=== PATIENT | female | born 2000 | race Caucasian/White ===

== ENCOUNTER 2023-05-02 12:01 | Emergency (ER) | payer BC, SELFPAY ==
[2023-05-02 12:23] VITALS: BP 125/78; PULSE 103; RESP 16; TEMP 36.9; O2SAT 99; BMI 24.8
--- NOTE | 2023-05-02 13:38 | ED_ITS ---
HPI - General Adult General Date Seen: 05/02/23 Chief complaint: Syncope/Fainted Stated complaint: passed out twice within 3 hours Time Seen by Provider: 05/02/23 13:37 History of Present Illness HPI narrative: 22-year-old generally healthy female who takes no regular medications and has no allergies who is referred from the Urgent Care to the ER today with concern for 3 syncopal episodes. History is obtained in part from the patient and in part from her friend, Zaria. 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 She has been studying [place] and sleeping not very much. Maximum amount of sleep since has been 7 hours in a night. She was up all night last night pulling on all night her. She does not normally drink caffeine but did drink 3 caffeinated beverages overnight to stay awake. She was feeling a bit nauseous and had a mild headache this morning. She went to her math computation at the [employer]. She was in the bathroom about 10:00 a.m.. She does not recall if she urinated or defecated. She recalls that she had gotten up from the toilet and was walking across the bathroom. She recalls feeling a little bit funny and dreamy and then woke up on the floor. No one saw her fall. It sounds like she was only on the floor briefly, perhaps less than a minute. She had no witnessed seizure activity but no one saw her fall. No postictal confusion. She was still a bit nauseous. Her friend gave her part a protein bar thinking her blood sugar might be low. Because of the fainting spell her friend drove her home home and then to the urgent care. At the urgent care she was apparently sitting in a chair there and had another spell where she briefly blacked out while sitting up and her head flopped over onto her friends shoulder. She had no seizure-like activity during the witnessed spell. She was unconscious about 10 or 15 seconds and then came to. Her friend does not recall any postictal confusion. Because of the fainting spell the providers at the urgent care checked her blood sugar and it was normal. They referred her to the ER. In the ER lobby she had a 3rd spell that occurred while she was sitting up in a chair. She again cleansed out and was unresponsive. She was clenching her fists tightly but not otherwise shaking. Spell lasted perhaps 10 seconds and then resolved. She does not recall any antecedent chest pain, palpitations, or severe headaches prior to any of her spells. No other recent illness. No fever or chills. No cough. No shortness of breath. No other chest pains lately. No abdominal pain. Menstrual cycles but normal. During her 1st spell in the bathroom she did hit her forehead against the floor. She really does not have a headache. She also chipped her right upper central incisor and her right lower central incisor. No bleeding in her mouth. No tongue lacerations. Related Data Home Medications Medication Instructions Recorded Confirmed No Known Home Medications 05/02/23 05/02/23 Allergies Allergy/AdvReac Type Severity Reaction Status Date / Time No Known Drug Allergies Allergy Verified 05/02/23 12:22 [facility] Social History Smoking Status: Never smoker Do you use any of these nicotine containing products: None How often do you have a drink containing alcohol: monthly or less How often do you have six or more drinks on one occasion: Never AUDIT-C Alcohol total score: 1 Non-prescribed substance use: denies use Exam Narrative: Exam Narrative: Constitutional: Appears well-developed and well-nourished. Alert. Conversant. Non toxic. HENT: Head: Very small frontal forehead hematoma. Without underlying skull fracture. Exam head trauma Nose: Nose normal. Mouth/Throat: Oral mucosa is clear and moist. no trismus. Pharynx normal. Tonsils symmetric. No tonsillar enlargement, erythema, or exudate. She has Fernández class 1 injury to the enamel of her right maxillary and mandibular central incisors. No jaw pain. No other signs of facial injury per Eyes: Conjunctivae normal. EOM normal. Pupils equal, round, and reactive to ligh t. No scleral icterus. Neck: Normal range of motion. Neck supple. No tracheal deviation present. No posterior midline tenderness. Cardiovascular: Normal rate, regular rhythm. No gallop. No friction rub. No murmur heard. Symmetric radial artery pulses Pulmonary/Chest: Effort normal. No stridor. No respiratory distress. No wheezes. No rales. No rhonchi . No tenderness. Abdominal: Soft. Bowel sounds normal. No distension. No mass. No tenderness. No rebound. No guarding. Musculoskeletal: RUE: Normal range of motion. No tenderness. No deformity LUE: Normal range of motion. No tenderness. No deformity RLE: Normal range of motion. No edema. No tenderness. No deformity LLE: Normal range of motion. No edema. No tenderness. No deformity Lymph: No cervical adenopathy. Neurological: Mental status normal. Attention normal. Alert and oriented x3. GCS 15. Memory normal. Speech fluent. Cognition normal. Cranial Nerves intact II-XII except I did not formally test gag or visual acuity. EOMI. Palate elevates symmetrically and tongue protrudes in the midline. Strength: 5/5 trapezius on the right and left 5/5 deltoid on the right and left 5/5 biceps on the right and left 5/5 triceps on the right and left 5/5 paper tube cutter on the right and left 5/5 thumb opposition on the right and le ft 5/5 finger abduction on the right and le ft 5/5 hip flexors (L3) on the right and le ft 5/5 quadriceps (L4) on the right and lef t 5/5 tibialis anterior on the right and l eft 5/5 EHL (L5) on the right and left 5/5 gastrocnemius (S1) on the right and left 5/5 hamstring on the right and left Sensation intact to light touch in both upper extremities (C4-T1) Sensation intact to light touch in Both lower extremities (L4-S1). Finger to nose and coordination normal. Skin: Skin is warm and dry. No rash noted. No pallor. Normal capillary refill. Psychiatric: Normal mood. Normal affect. Very polite. Const: Vital Signs, click to edit/add: Vital Signs - 24 hr 05/02/23 12:23 05/02/23 15:31 Temperature 98.4 F Pulse Rate [Pulse Oximeter] 103 H 87 Respiratory Rate 16 18 Blood Pressure [Ri ght Upper Arm] 125/78 120/65 Pulse Oximetry 99 94 Oxygen Delivery Me thod Room Air Room Air Course Course ED Course: Recheck-feeling better after IV fluids. Ambulatory in the hallway without dizziness or presyncope. Produced urine. Vital Signs Vital signs: Initial Vital Signs Temperature 98.4 F 05/02/23 12:23 Temperature Source Temporal Artery Scan 05/02/23 12:23 Pulse Rate 103 H 05/02/23 12:23 Pulse Rhythm Regular 05/02/23 12:23 Pulse Strength 3+ Normal 05/02/23 12:23 Respiratory Rate 16 05/02/23 12:23 Blood Pressure 125/78 05/02/23 12:23 Blood Pressure Mean 93 05/02/23 12:23 Blood Pressure Position Sitting 05/02/23 12:23 Pulse Oximetry 99 05/02/23 12:23 Oxygen Delivery Method Room Air 05/02/23 12:23 Vital Signs Temperature 98.4 F 05/02/23 12:23 Pulse Rate 103 H 05/02/23 12:23 Respiratory Rate 16 05/02/23 12:23 Blood Pressure 125/78 05/02/23 12:23 Pulse Oximetry 99 05/02/23 12:23 Oxygen Delivery Method Room Air 05/02/23 12:23 Temperature 98.4 F 05/02/23 12:23 Pulse Rate 87 05/02/23 15:31 Respiratory Rate 18 05/02/23 15:31 Blood Pressure 120/65 05/02/23 15:31 Pulse Oximetry 94 05/02/23 15:31 Oxygen Delivery Method Room Air 05/02/23 15:31 Medications Administered Medications: Discontinued Medications Generic Name Dose Route Start Last Admin Trade Name Freq PRN Reason Stop Dose Admin Sodium Chloride 1,000 mls @ 1,000 mls/hr 05/02/23 13:45 05/02/23 15:10 0.9 % Sodium Chloride 1000 Ml IV 05/02/23 14:44 Infused .Q1H ALECIA Infusion Medical Decision Making [facility] Narrative Medical decision making narrative: This patient presents for evaluation of a syncopal event. A broad differential was considered. History provided suggests a benign cause of syncope. No murmurs . Initial ECG shows normal sinus rhythm and no dysrhythmogenic abnormality such as WPW, prolonged QT, Brugada syndrome, and no ischemia. No symptoms/findings concerning for cardiac ischemia or ACS. No headache or other neurologic sy mptoms to suggest subarachnoid , stroke . No reported seizure-like activity or postictal phase. ekg monitor while the patient here in the ER showed no dysrhythmia or ectopy. A broad differential diagnosis was considered including SVT, Atrial fibrillation, ventricular arrhythmia, thyroid disease, acute electrolyte abnormality, drugs/medications, medication side effect, anemia, heart disease, PE (negative by PERC), among others. Patient feeling much better after IV fluids The workup and exam here in ED shows low risk for dangerous cause of the patient's syncope, and no risks factors to warrant admission. Clinical judgement suggests that supportive outpatient management is indicated. Recommend follow up with her primary care or [facility]. She did hit her head when she fell during her for syncopal episode. She is neurologically intact here in the ER. Overall meets low risk criteria according to he [place] head CT rules so would hold off on CT scan for now. Unclear if she is even having symptoms of concussion. She does have bowel nausea but that was actually preceding her syncopal episode and might be related to staying up all night Recommend follow-up in clinic for re-evaluation. Questions answered and return precautions given Lab Data Labs: Lab Results 05/02/23 05/02/23 Range/Units 14:14 14:25 Sodium 136 (135-149) mmol/L Potassium 4.0 (3.6-5.1) mmol/L Chloride 102 (96-114) mmol/L Carbon Dioxide 21 (20-32) mmol/L Anion Gap 13 (7-15) mEq/L BUN 10 (5-24) mg/dL Creatinine 0.6 (0.5-1.5) mg/dL Estimated Creat Clear 122.69 Estimated GFR 131 ml/min Glucose 113 (60-115) mg/dL Calcium 10.0 (8.4-10.6) mg/dL Total Bilirubin 1.0 (0.1-1.5) mg/dL AST 24 (12-35) U/L ALT 19 (4-35) U/L Alkaline Phosphatase 55 (40-150) U/L Total Protein 8.8 H (6.0-8.3) g/dL Albumin 5.4 H (3.3-5.0) g/dL Urine HCG, Qual Negative (Negative) Urine Opiates Screen Negative (Negative) Ur Oxycodone Screen Negative (Negative) Urine Methadone Screen Negative (Negative) Ur Barbiturates Screen Negative (Negative) U Tricyclic Antidepress Negative (Negative) Ur Phencyclidine Scrn Negative (Negative) Ur Amphetamines Screen Negative (Negative) U Methamphetamines Scrn Negative (Negative) U Benzodiazepines Scrn Negative (Negative) Urine Cocaine Screen Negative (Negative) U Marijuana (THC) Screen Negative (Negative) Ur Drug Screen Comment See Note ECG Data Attestation: I personally reviewed and interpreted this ECG as follows: Interpretation: Normal sinus rhythm. Rate 74 FL . One hundred forty-four. No delta waves. No signs of WPW. QRS axis . Normal axis. No pathologic Q-waves. ST segment/T wave: No ST segment elevation or depression. QTc: 448 No evidence for Brugada syndrome, ischemia, WPW. Discharge Plan Discharge Clinical Impression: Syncope and collapse, Head injury Patient Disposition: Home, Self-Care Condition: Stable Instructions: Syncope (DC), Head Injury (DC) Additional Instructions: Please follow-up with your doctor within the next 2-3 days to recheck. If you have any concerns, especially more fainting spells, worsening headache, confusion, vomiting, or other concerns, please come back to the ER right away. Prescriptions: No Action No Known Home Medications Follow Up/Referrals: Provider,Not a Local [Primary Care Provider] - Stand Alone Forms: [id number] Info Instructions
[2023-05-02] MEDS: 0.9 % SODIUM CHLORIDE 1000 ml 1,000 ML IV (14:30)
[2023-05-02 14:38] LABS: Ur HCG Qualitative* Negative (Negative)
[2023-05-02 14:46] LABS: Amphetamine Screen Urine Negative (Negative); Barbiturate Screen Urine Negative (Negative); Benzodiazepines Screen Urine Negative (Negative); Cannabinoid Screen Urine Negative (Negative); Cocaine Screen Urine Negative (Negative); Methadone Screen Urine Negative (Negative); Methamphetamines Screen Urine Negative (Negative); Opiate Screen Urine Negative (Negative); Oxycodone Screen Urine Negative (Negative); Phencyclidine Screen Urine Negative (Negative); Tricyclic Antidepressant Urine Negative (Negative)
[2023-05-02 14:53] LABS: Albumin* 5.4 g/dL (3.3-5.0); Chloride* 102 mmol/L (96-114); Sodium* 136 mmol/L (135-149)
[2023-05-02 14:56] LABS: Alanine Aminotransferase* 19 U/L (4-35); Alkaline Phosphatase* 55 U/L (40-150); Anion Gap 13 mEq/L (7-15); Aspartate Amino Transferase* 24 U/L (12-35); Blood Urea Nitrogen* 10 mg/dL (5-24); Carbon Dioxide* 21 mmol/L (20-32); Creatinine* 0.6 mg/dL (0.5-1.5); Est. Creatinine Clearance* 122.69; Estimated Glomerular Filt Rate 131 ml/min; Glucose* 113 mg/dL (60-115); Total Protein* 8.8 g/dL (6.0-8.3)
[2023-05-02 15:31] VITALS: BP 120/65; PULSE 87; RESP 18; O2SAT 94
== END 2023-05-02 16:10 | disposition home or self-care (01) ==
PROVIDERS: Emergency Provider Emergency Medicine
DX: R55 Syncope and collapse (principal); S09.90XA Unspecified injury of head, initial encounter
CPT/HCPCS: 36415; 80048; 80053; 80306; 81025; 93005; 99283; 99284; J7030